=== PATIENT | male | born 1995 | race African-American/Black ===

== ENCOUNTER 2017-09-23 10:32 | Outpatient (CLI) | payer OTHER ==
[2017-09-23] MEDS ORDERED: XYLOCAINE TOPICAL 4% TP ONE ×2 (11:15→12:31)
== END 2017-09-23 10:33 | disposition home or self-care (01) ==
LOC: WOUND 10:32
PROVIDERS: ATTEND Surgery
DX: S81.802A Unspecified open wound, left lower leg, initial encounter (principal); W22.8XXA Striking against or struck by other objects, initial encounter; Y93.89 Activity, other specified; Y92.89 Other specified places as the place of occurrence of the external cause; Y99.8 Other external cause status
CPT/HCPCS: 11042; 11045; G0463

== ENCOUNTER 2017-09-30 11:20 | Outpatient (CLI) | payer OTHER ==
[2017-09-30] MEDS ORDERED: XYLOCAINE TOPICAL 4% TP ONE ×2 (11:24→11:35)
== END 2017-09-30 11:21 | disposition home or self-care (01) ==
LOC: WOUND 11:20
PROVIDERS: ATTEND Surgery
DX: S81.802D Unspecified open wound, left lower leg, subsequent encounter (principal); I50.9 Heart failure, unspecified; W22.8XXD Striking against or struck by other objects, subsequent encounter

== ENCOUNTER 2017-10-07 11:19 | Outpatient (CLI) | payer OTHER ==
[2017-10-07] MEDS ORDERED: XYLOCAINE TOPICAL 4% TP ONE ×2 (11:54→12:07)
== END 2017-10-07 11:20 | disposition home or self-care (01) ==
LOC: WOUND 11:19
PROVIDERS: ATTEND Surgery
DX: S81.802D Unspecified open wound, left lower leg, subsequent encounter (principal); I50.9 Heart failure, unspecified; W22.8XXD Striking against or struck by other objects, subsequent encounter

== ENCOUNTER 2017-10-14 11:20 | Outpatient (CLI) | payer OTHER ==
[2017-10-14] MEDS ORDERED: XYLOCAINE TOPICAL 4% TP ONE ×2 (11:42→11:58)
== END 2017-10-14 11:21 | disposition home or self-care (01) ==
LOC: WOUND 11:20
PROVIDERS: ATTEND Surgery
DX: S81.802D Unspecified open wound, left lower leg, subsequent encounter (principal); I50.9 Heart failure, unspecified; W22.8XXD Striking against or struck by other objects, subsequent encounter

== ENCOUNTER 2017-10-21 11:07 | Outpatient (CLI) | payer OTHER ==
[2017-10-21] MEDS ORDERED: XYLOCAINE TOPICAL 4% TP ONE ×2 (11:15→11:30)
== END 2017-10-21 11:08 | disposition home or self-care (01) ==
LOC: WOUND 11:07
PROVIDERS: ATTEND Surgery
DX: S81.802D Unspecified open wound, left lower leg, subsequent encounter (principal); I50.9 Heart failure, unspecified; W22.8XXD Striking against or struck by other objects, subsequent encounter

== ENCOUNTER 2017-11-04 10:59 | Outpatient (CLI) | payer OTHER ==
[2017-11-04] MEDS ORDERED: XYLOCAINE TOPICAL 4% TP ONE ×2 (11:09→11:25)
== END 2017-11-04 11:00 | disposition home or self-care (01) ==
LOC: WOUND 10:59
PROVIDERS: ATTEND Surgery
DX: S81.802D Unspecified open wound, left lower leg, subsequent encounter (principal); I50.9 Heart failure, unspecified; W22.8XXD Striking against or struck by other objects, subsequent encounter

== ENCOUNTER 2017-11-11 11:09 | Outpatient (CLI) | payer OTHER ==
[2017-11-11] MEDS ORDERED: XYLOCAINE TOPICAL 4% TP ONE ×2 (11:42→12:51)
== END 2017-11-11 11:10 | disposition home or self-care (01) ==
LOC: WOUND 11:09
PROVIDERS: ATTEND Surgery
DX: S81.802D Unspecified open wound, left lower leg, subsequent encounter (principal); I50.9 Heart failure, unspecified; W22.8XXD Striking against or struck by other objects, subsequent encounter

== ENCOUNTER 2017-11-19 08:52 | Outpatient (CLI) | payer OTHER ==
[2017-11-19] MEDS ORDERED: XYLOCAINE TOPICAL 4% TP ONE ×2 (09:07→09:29)
== END 2017-11-19 08:53 | disposition home or self-care (01) ==
LOC: WOUND 08:52
PROVIDERS: ATTEND Surgery
DX: L97.222 Non-pressure chronic ulcer of left calf with fat layer exposed (principal); S81.801D Unspecified open wound, right lower leg, subsequent encounter; I89.0 Lymphedema, not elsewhere classified; X58.XXXD Exposure to other specified factors, subsequent encounter

== ENCOUNTER 2017-11-25 14:03 | Outpatient (CLI) | payer OTHER ==
[2017-11-25] MEDS ORDERED: XYLOCAINE TOPICAL 4% TP ONE (14:17)
[2017-11-28] MEDS ORDERED: XYLOCAINE TOPICAL 4% TP ONE (12:06)
== END 2017-11-25 14:04 | disposition home or self-care (01) ==
LOC: WOUND 14:03
PROVIDERS: ATTEND Surgery
DX: L97.222 Non-pressure chronic ulcer of left calf with fat layer exposed (principal); S81.801D Unspecified open wound, right lower leg, subsequent encounter; I89.0 Lymphedema, not elsewhere classified; X58.XXXD Exposure to other specified factors, subsequent encounter
CPT/HCPCS: 99213; G0463

== ENCOUNTER 2018-07-22 09:18 | Outpatient (CLI) | payer OTHER | END 2018-07-22 09:19 | disposition home or self-care (01) | LOC: WOUND 09:18 | PROVIDERS: ATTEND Surgery | DX: S81.801D Unspecified open wound, right lower leg, subsequent encounter (principal); I89.0 Lymphedema, not elsewhere classified; X58.XXXD Exposure to other specified factors, subsequent encounter ==

== ENCOUNTER 2018-07-28 09:15 | Outpatient (CLI) | payer OTHER ==
[2018-07-28] MEDS ORDERED: XYLOCAINE TOPICAL 4% TP ONE (09:30)
== END 2018-07-28 09:16 | disposition home or self-care (01) ==
LOC: WOUND 09:15
PROVIDERS: ATTEND Surgery
DX: S81.801D Unspecified open wound, right lower leg, subsequent encounter (principal); I89.0 Lymphedema, not elsewhere classified; X58.XXXD Exposure to other specified factors, subsequent encounter

== ENCOUNTER 2018-08-05 09:11 | Outpatient (CLI) | payer OTHER | END 2018-08-05 09:12 | disposition home or self-care (01) | LOC: WOUND 09:11 | PROVIDERS: ATTEND Surgery | DX: S81.801D Unspecified open wound, right lower leg, subsequent encounter (principal); S81.802D Unspecified open wound, left lower leg, subsequent encounter; I89.0 Lymphedema, not elsewhere classified; X58.XXXD Exposure to other specified factors, subsequent encounter ==

== ENCOUNTER 2018-08-11 09:09 | Outpatient (CLI) | payer OTHER | END 2018-08-11 09:10 | disposition home or self-care (01) | LOC: WOUND 09:09 | PROVIDERS: ATTEND Surgery | DX: S81.801D Unspecified open wound, right lower leg, subsequent encounter (principal); S81.802D Unspecified open wound, left lower leg, subsequent encounter; I89.0 Lymphedema, not elsewhere classified; X58.XXXD Exposure to other specified factors, subsequent encounter ==

== ENCOUNTER 2018-08-13 22:24 | Emergency (ER) | payer OTHER | END 2018-08-13 22:35 | disposition left against medical advice (07) | LOC: ED 22:24 | DX: R22.2 Localized swelling, mass and lump, trunk (principal); Z53.21 Procedure and treatment not carried out due to patient leaving prior to being seen by health care provider ==

== ENCOUNTER 2018-08-18 09:21 | Outpatient (CLI) | payer OTHER | END 2018-08-18 09:22 | disposition home or self-care (01) | LOC: WOUND 09:21 | PROVIDERS: ATTEND Surgery | DX: S81.801D Unspecified open wound, right lower leg, subsequent encounter (principal); S81.802D Unspecified open wound, left lower leg, subsequent encounter; I89.0 Lymphedema, not elsewhere classified; X58.XXXD Exposure to other specified factors, subsequent encounter | CPT/HCPCS: 99212; G0463 ==

== ENCOUNTER 2018-09-12 09:47 | Outpatient (CLI) | payer OTHER | END 2018-09-12 09:48 | disposition home or self-care (01) | LOC: WOUND 09:47 | PROVIDERS: ATTEND Surgery | DX: L03.115 Cellulitis of right lower limb (principal); Q24.9 Congenital malformation of heart, unspecified ==

== ENCOUNTER 2018-09-19 09:05 | Outpatient (CLI) | payer OTHER ==
[2018-09-19] MEDS ORDERED: XYLOCAINE TOPICAL 4% TP ONE (09:15)
[2018-09-19] MEDS ORDERED: SILVER NITRATE TP NR (10:15)
== END 2018-09-19 09:06 | disposition home or self-care (01) ==
LOC: WOUND 09:05
PROVIDERS: ATTEND Surgery
DX: L03.115 Cellulitis of right lower limb (principal); Q24.9 Congenital malformation of heart, unspecified

== ENCOUNTER 2018-09-26 09:36 | Outpatient (CLI) | payer OTHER | END 2018-09-26 09:37 | disposition home or self-care (01) | LOC: WOUND 09:36 | PROVIDERS: ATTEND Surgery | DX: S81.801D Unspecified open wound, right lower leg, subsequent encounter (principal); Q24.9 Congenital malformation of heart, unspecified; W22.8XXD Striking against or struck by other objects, subsequent encounter | CPT/HCPCS: 99213; G0463 ==

== ENCOUNTER 2018-10-03 09:52 | Outpatient (CLI) | payer OTHER | END 2018-10-03 09:53 | disposition home or self-care (01) | LOC: WOUND 09:52 | PROVIDERS: ATTEND Surgery | DX: S81.801D Unspecified open wound, right lower leg, subsequent encounter (principal); Q24.8 Other specified congenital malformations of heart; X58.XXXD Exposure to other specified factors, subsequent encounter | CPT/HCPCS: 99213; G0463 ==

== ENCOUNTER 2019-05-25 13:03 | Outpatient (CLI) | payer OTHER ==
[2019-05-25] MEDS ORDERED: SODIUM CHLORIDE 0.9% IRR 500 ML BOTTLE IR ONE (14:00)
[2019-05-25] MEDS ORDERED: LIDOCAINE (4%) 40 MG/ML TOPICAL SOLN 50 ML BOTTLE TP ONE (14:40)
== END 2019-05-25 13:04 | disposition home or self-care (01) ==
LOC: WOUND 13:03
PROVIDERS: ATTEND Surgery
DX: L97.812 Non-pressure chronic ulcer of other part of right lower leg with fat layer exposed (principal); Q24.8 Other specified congenital malformations of heart; I87.8 Other specified disorders of veins
CPT/HCPCS: 99215; G0463

== ENCOUNTER 2019-06-08 12:55 | Outpatient (CLI) | payer OTHER ==
[~2019-06-08 12:55] MED LIST: LIDOCAINE (4%) 40 MG/ML TOPICAL SOLN 50 ML BOTTLE TP ONE
== END 2019-06-08 12:56 | disposition home or self-care (01) ==
LOC: WOUND 12:55
PROVIDERS: ATTEND Surgery
DX: L97.812 Non-pressure chronic ulcer of other part of right lower leg with fat layer exposed (principal); Q24.8 Other specified congenital malformations of heart; I87.8 Other specified disorders of veins